=== PATIENT | male | born 1945 | race Caucasian/White ===

== ENCOUNTER → 2021-11-01 | Outpatient (CLI) | payer MEDICARE, BC | LOC: ECHO 09:13 | DX: I10 Essential (primary) hypertension (principal) | CPT/HCPCS: ECHO; 93306 ==

== ENCOUNTER → 2022-02-21 | Outpatient (CLI) | payer MEDICARE, BC | LOC: KOH-I 14:28 | DX: N43.3 Hydrocele, unspecified (principal) | CPT/HCPCS: 76870 ==